=== PATIENT | male | born 1955 | race Two or more races ===

== ENCOUNTER 2017-12-24 09:08 | Outpatient (CLI) | payer OTHER ==
[~2017-12-24 09:08] MED LIST: CIPROFLOXACIN750 MG PO; CLONAZEPAM1 MG PO; DIOVAN160 M1 PO; DOCUSATE SODIU100 MG PO; GABAPENTIN800 MG PO; PERCOCET 5/3251 TAB PO; ZOCOR5 MG PO
== END 2017-12-24 09:14 | disposition home or self-care (01) ==
LOC: RAD 09:08
DX: R07.9 Chest pain, unspecified (principal)

== ENCOUNTER 2018-01-10 09:15 | Inpatient (IN) | payer OTHER ==
[~2018-01-10] VITALS: Ht 170.2 cm; Wt 83.5 kg
[2018-01-15] MEDS ORDERED: DOCUSATE SODIU100 MG PO (10:04)
[2018-01-15] MEDS ORDERED: GABAPENTIN800 MG PO (10:04)
[2018-01-15] MEDS ORDERED: AMOX-CLAV 875-1 EACH PO (10:05)
[2018-01-15] MEDS ORDERED: PERCOCET 5-3251 EACH PO (10:05)
[2018-01-15] MEDS ORDERED: CLONAZEPAM1 MG PO (10:05)
== END 2018-01-15 13:23 | disposition home or self-care (01) | DRG 455 ==
LOC: O/R 01-14 05:06 → PED 01-14 05:06 → SURH 01-14 09:15 → PED 01-14 14:21
PROVIDERS: Orthopaedic Surgery Orthopaedic Surgery of the Spine
PROC: 0SG0071 Fusion of Lumbar Vertebral Joint with Autologous Tissue Substitute, Posterior Approach, Posterior Column, Open Approach (ICD-10-PCS; 2018-01-14)
PROC: 0ST20ZZ Resection of Lumbar Vertebral Disc, Open Approach (ICD-10-PCS; 2018-01-14)
PROC: 0SG00AJ Fusion of Lumbar Vertebral Joint with Interbody Fusion Device, Posterior Approach, Anterior Column, Open Approach (ICD-10-PCS; 2018-01-14)
PROC: 07DS3ZZ Extraction of Vertebral Bone Marrow, Percutaneous Approach (ICD-10-PCS; 2018-01-14)
PROC: 0SG00A0 Fusion of Lumbar Vertebral Joint with Interbody Fusion Device, Anterior Approach, Anterior Column, Open Approach (ICD-10-PCS; principal; 2018-01-14 10:45)
DX: M47.26 Other spondylosis with radiculopathy, lumbar region (principal); M43.16 Spondylolisthesis, lumbar region; M51.16 Intervertebral disc disorders with radiculopathy, lumbar region; I10 Essential (primary) hypertension; M71.38 Other bursal cyst, other site

== ENCOUNTER 2018-03-24 09:16 | Outpatient (CLI) | payer OTHER ==
[~2018-03-24 09:16] MED LIST changes: +AMOX-CLAV 875-1 EACH PO; +PERCOCET 5-3251 EACH PO
== END 2018-03-24 10:15 | disposition home or self-care (01) ==
LOC: RAD 501 09:16
DX: M43.10 Spondylolisthesis, site unspecified (principal); Z98.1 Arthrodesis status

== ENCOUNTER 2018-07-16 10:53 | Outpatient (CLI) | payer OTHER | END 2018-07-16 16:26 | disposition home or self-care (01) | LOC: RAD 10:53 | DX: M96.1 Postlaminectomy syndrome, not elsewhere classified (principal); Z98.1 Arthrodesis status ==

== ENCOUNTER 2019-01-27 09:03 | Outpatient (CLI) | payer OTHER | END 2019-01-27 09:12 | disposition home or self-care (01) | LOC: RAD 09:03 | DX: M51.36 Other intervertebral disc degeneration, lumbar region (principal); Z98.1 Arthrodesis status ==

== ENCOUNTER 2019-03-20 12:25 | Outpatient (CLI) | payer OTHER ==
[2019-03-27] MEDS ORDERED: COZAAR50 MG PO (09:38)
== END 2019-03-20 12:31 | disposition home or self-care (01) ==
LOC: RAD 12:25
DX: K42.9 Umbilical hernia without obstruction or gangrene (principal); Z01.818 Encounter for other preprocedural examination

== ENCOUNTER 2019-04-01 06:10 | Day surgery (SDC) | payer OTHER ==
[~2019-04-01 06:10] MED LIST changes: +COZAAR50 MG PO
[2019-04-01] MEDS ORDERED: ULTRACET PO (09:12)
[2019-04-01] MEDS ORDERED: COLACE100 MG PO (09:13)
[2019-04-01] MEDS ORDERED: NEURONTIN300 MG PO (09:13)
== END 2019-04-01 13:25 | disposition home or self-care (01) ==
LOC: CIR.AMB 06:10
DX: K42.0 Umbilical hernia with obstruction, without gangrene (principal)

== ENCOUNTER 2020-05-17 11:11 | Outpatient (CLI) | payer OTHER ==
[~2020-05-17 11:11] MED LIST changes: +COLACE100 MG PO; +NEURONTIN300 MG PO; +ULTRACET PO
== END 2020-05-17 11:16 | disposition home or self-care (01) ==
LOC: RAD 11:11
PROVIDERS: ATTEND Urology
DX: Z01.811 Encounter for preprocedural respiratory examination (principal)

== ENCOUNTER 2020-10-10 01:12 | Outpatient (CLI) | payer OTHER | END 2020-10-10 01:15 | disposition home or self-care (01) | LOC: PPH VACUNA 01:12 | DX: Z23 Encounter for immunization (principal) ==

== ENCOUNTER 2021-08-07 09:44 | Outpatient (CLI) | payer OTHER | END 2021-08-07 09:59 | disposition home or self-care (01) | LOC: RAD 09:44 | PROVIDERS: ATTEND Obstetrics & Gynecology | DX: I10 Essential (primary) hypertension (principal); R05.8 Other specified cough ==

== ENCOUNTER 2022-05-10 09:58 | Outpatient (CLI) | payer OTHER | END 2022-05-10 10:01 | disposition home or self-care (01) | LOC: RAD 09:58 | PROVIDERS: ATTEND Internal Medicine Cardiovascular Disease | DX: J44.9 Chronic obstructive pulmonary disease, unspecified (principal) ==

== ENCOUNTER 2023-04-03 13:58 | Outpatient (CLI) | payer OTHER | END 2023-04-03 14:10 | disposition home or self-care (01) | LOC: MRI 13:58 | DX: Z98.1 Arthrodesis status (principal) | CPT/HCPCS: 72148 ==